=== PATIENT | female | born 1985 | race Caucasian/White ===

== ENCOUNTER 2023-05-24 17:06 | Emergency (ER) | payer OTHER, SELFPAY ==
[2023-05-24 17:12] VITALS: BP 150/100
[2023-05-24] MEDS: NSS 1000 IV ×2 (17:24)
[2023-05-24 17:25] LABS: % Basophils 0.3 % (0-2); % Eosinophils 1.1 % (0-6); % Immature Granulocytes 0.6 % (0-0.5); % Lymphocytes 3.6 % (20.5-51.1); % Monocytes 4.6 % (1.7-9.3); % Neutrophils 89.8 % (42.2-75.2); Absolute Eosinophils 0.1 10^3/uL (0-0.7); Absolute Immature Granulocytes 0.1 10^3/uL (0-0.05); Absolute Lymphocytes 0.4 10^3/uL (1.2-3.4); Absolute Monocytes 0.6 10^3/uL (0.1-0.6); Absolute Neutrophils 10.8 10^3/uL (1.4-6.5); Hematocrit 41.4 % (37.0-47.0); Hemoglobin 14.9 g/dL (12.0-16.0); Mean Corpuscular Hgb 31.4 pg (27.0-31.0); Mean Corpuscular Volume 87.3 fL (81.0-99.0); Mean Platelet Volume 10.7 fL (7.4-10.4); Nucleated Red Blood Cells % 0 %; Platelet Count 176 10^3/uL (130-400); Red Blood Cell Count 4.74 10^6/uL (4.20-5.40); Red Cell Dist. Width 12.1 % (11.5-14.5); White Blood Cell Count 12.1 10^3/uL (4.8-10.8)
[2023-05-24 17:51] LABS: ALT (SGPT) 50 U/L (0-35); AST (SGOT) 49 U/L (14-36); Albumin 4.8 g/dl (3.5-5.0); Alkaline Phosphatase 78 U/L (38-126); Blood Urea Nitrogen 26 mg/dl (7-17); Calcium 9.3 mg/dl (8.4-10.2); Carbon Dioxide 26 mmol/L (22-30); Chloride 104 mmol/L (98-107); Glucose 117 mg/dl (70-99); Lipase 79 U/L (23-300); Sodium 136 mmol/L (135-145); Total Protein 8.4 g/dl (6.3-8.2); eGFR > 60.00
[2023-05-24 18:22] VITALS: BP 126/70
[2023-05-24 19:00] VITALS: BP 136/89
[2023-05-24] MEDS: PEPCID 20 MG IV (19:16)
[2023-05-24] MEDS: BENADRYL 25 MG IV (19:17)
[2023-05-24] MEDS: BENTYL 20 MG IM (19:17)
[2023-05-24] MEDS: ZOFRAN 4 MG IV ×2 (19:17→21:03)
[2023-05-24] MEDS: TYLENOL 650 MG PO (19:37)
--- NOTE | 2023-05-24 19:46 | ED.GENMED ---
History of Present Illness
<Ino Glasgow Jr., PA-C - Last Filed: 05/25/23 07:04>
General
Chief Complaint: Abdominal Symptoms
Source: patient
Exam Limitations: none
Time Seen by Provider: 05/24/23 18:38
Nursing documentation reviewed up to this point in time: agreed with
Travel History
Have you had any contact with someone who has COVID-19?: No
Do you have any symptoms of coronavirus? Fever > 100 degrees, chills, cough, shortness of breath, sore throat, loss of taste or smell, muscle aches, or headache?: No
History of Present Illness
History of Present Illness:
38-year-old female with past medical history of anxiety PTSD previous substance abuse but currently in remission presenting to the emergency department today with concerns of nausea vomiting and diarrhea over the past 12 hours or so. Unable to keep
anything down. Denies any specific chest pain does have some diffuse abdominal cramping but denies any focal discomfort. Denies any marijuana use or any recent drug use or alcohol use.
Past History
<Ino Glasgow Jr., PA-C - Last Filed: 05/25/23 07:04>
Past History
ED Past Medical History: Psychiatric (anxiety, substance abuse-Meth, IVDA)
ED Past Surgical History: Appendectomy, Cholecystectomy, Tonsilectomy and Other
Social History
Tobacco: Former smoker
Alcohol: None
Drug: Narcotics and Other (Methamphetamine, IVDA)
Personal: Single
Living: with family
Employment: Not employed
Family History
Family History: Other (Noncontributory)
Review of Systems
<Ino Glasgow Jr., PA-C - Last Filed: 05/25/23 07:04>
Review of Systems
Allergies reviewed?: Yes
All Other Systems: ROS reviewed and negative except as documented in HPI and ROS
Phy Exam
<Ino Glasgow Jr., PA-C - Last Filed: 05/25/23 07:04>
Physical Exam
Physical Exam:
GENERAL: Alert , in no apparent distress
EYE: pupils equal and reactive
NECK: Supple, no significant adenopathy.
ENT: o/p clr, mmm.
CARDIAC: Regular rate and rhythm .
LUNGS: Clear breath sounds bilaterally, no acute respiratory distress, no wheezes/rales/rhonchi
ABDOMEN: Soft, without focal tenderness, no r/g, no cvat
NEUROLOGICAL: Alert and oriented, no focal neuro deficits
SKIN: Warm and dry, skin intact.
MUSCULOSKELETAL: No edema, well perfused.
PSYCH: Normal and appropriate interaction.
Course
<Ino Glasgow Jr., PA-C - Last Filed: 05/25/23 07:04>
Orders/Labs/Results
Orders:
Orders
05/24/23 17:13
EKG [Electrocardiogram (*1)] Urgent
Reason for Study: Abdominal Pain
EKG- Treatment ONCE
05/24/23 17:18
Complete Blood Count/With Diff Urgent
Comprehensive Metabolic Panel Urgent
HCG, Serum Qualitative Screen Urgent
Comment: ADD ON
Lipase Urgent
05/24/23 17:30
0.9% Sodium Chloride 1000 ml [Nss] 1,000 ml IV 2,000 mls/hr
05/24/23 19:01
Dicyclomine HCl [Bentyl] 20 mg IM NOW STA
Diphenhydramine [Benadryl] 25 mg IV NOW STA
Famotidine [Pepcid] 20 mg IV NOW STA
Ondansetron Injectable [Zofran] 4 mg IV NOW STA
05/24/23 19:35
Acetaminophen [Tylenol] 650 mg .ROUTE .STK-MED ONE
05/24/23 19:36
Acetaminophen [Tylenol] 650 mg PO NOW STA
05/24/23 20:07
CT Abd/Pel (IV only)-DH only Urgent
Comment:
Reason For Exam: diffuse abd pain, tahcy, white count, vomiting
Ketorolac [Toradol] 15 mg IV NOW STA
05/24/23 20:15
Add On- LAB Urgent
Tests Added?: qualitative beta hcg
05/24/23 20:49
Ondansetron Injectable [Zofran] 4 mg IV NOW STA
Abnormal Lab Results
05/24/23
17:18
WBC 12.1 H 10^3/uL
(4.8-10.8)
MCH 31.4 H pg
(27.0-31.0)
MPV 10.7 H fL
(7.4-10.4)
Abs Immat Gran (auto) 0.1 H 10^3/uL
(0-0.05)
Absolute Neuts (auto) 10.8 H 10^3/uL
(1.4-6.5)
Absolute Lymphs (auto) 0.4 L 10^3/uL
(1.2-3.4)
Immature Gran % 0.6 H %
(0-0.5)
Neutrophils % 89.8 H %
(42.2-75.2)
Lymphocytes % 3.6 L %
(20.5-51.1)
BUN 26 H mg/dl
(7-17)
Glucose 117 H mg/dl
(70-99)
AST 49 H U/L
(14-36)
ALT 50 H U/L
(0-35)
Total Protein 8.4 H g/dl
(6.3-8.2)
05/24/23 17:18
05/24/23 17:18
Vital Signs
Initial and Last Documented VS:
Initial Vital Signs
Temp Pulse Resp BP Pulse Ox
97.9 F 138 17 150/100 99
05/24/23 17:12 05/24/23 17:12 05/24/23 17:12 05/24/23 17:12 05/24/23 17:12
Last Documented Vital Signs
Temp Pulse Resp BP Pulse Ox
98.4 F 107 22 94/67 97
05/24/23 22:19 05/24/23 23:05 05/24/23 23:05 05/24/23 23:05 05/24/23 23:05
<Bree Estevez, [employer] - Last Filed: 05/25/23 02:24>
Orders/Labs/Results
Orders:
Orders
05/24/23 17:13
EKG [Electrocardiogram (*1)] Urgent
Reason for Study: Abdominal Pain
EKG- Treatment ONCE
05/24/23 17:18
Complete Blood Count/With Diff Urgent
Comprehensive Metabolic Panel Urgent
HCG, Serum Qualitative Screen Urgent
Comment: ADD ON
Lipase Urgent
05/24/23 17:30
0.9% Sodium Chloride 1000 ml [Nss] 1,000 ml IV 2,000 mls/hr
05/24/23 19:01
Dicyclomine HCl [Bentyl] 20 mg IM NOW STA
Diphenhydramine [Benadryl] 25 mg IV NOW STA
Famotidine [Pepcid] 20 mg IV NOW STA
Ondansetron Injectable [Zofran] 4 mg IV NOW STA
05/24/23 19:35
Acetaminophen [Tylenol] 650 mg .ROUTE .STK-MED ONE
05/24/23 19:36
Acetaminophen [Tylenol] 650 mg PO NOW STA
05/24/23 20:07
CT Abd/Pel (IV only)-DH only Urgent
Comment:
Reason For Exam: diffuse abd pain, tahcy, white count, vomiting
Ketorolac [Toradol] 15 mg IV NOW STA
05/24/23 20:15
Add On- LAB Urgent
Tests Added?: qualitative beta hcg
05/24/23 20:49
Ondansetron Injectable [Zofran] 4 mg IV NOW STA
Abnormal Lab Results
05/24/23
17:18
WBC 12.1 H 10^3/uL
(4.8-10.8)
MCH 31.4 H pg
(27.0-31.0)
MPV 10.7 H fL
(7.4-10.4)
Abs Immat Gran (auto) 0.1 H 10^3/uL
(0-0.05)
Absolute Neuts (auto) 10.8 H 10^3/uL
(1.4-6.5)
Absolute Lymphs (auto) 0.4 L 10^3/uL
(1.2-3.4)
Immature Gran % 0.6 H %
(0-0.5)
Neutrophils % 89.8 H %
(42.2-75.2)
Lymphocytes % 3.6 L %
(20.5-51.1)
BUN 26 H mg/dl
(7-17)
Glucose 117 H mg/dl
(70-99)
AST 49 H U/L
(14-36)
ALT 50 H U/L
(0-35)
Total Protein 8.4 H g/dl
(6.3-8.2)
05/24/23 17:18
05/24/23 17:18
Vital Signs
Initial and Last Documented VS:
Initial Vital Signs
Temp Pulse Resp BP Pulse Ox
97.9 F 138 17 150/100 99
05/24/23 17:12 05/24/23 17:12 05/24/23 17:12 05/24/23 17:12 05/24/23 17:12
Last Documented Vital Signs
Temp Pulse Resp BP Pulse Ox
98.4 F 107 22 94/67 97
05/24/23 22:19 05/24/23 23:05 05/24/23 23:05 05/24/23 23:05 05/24/23 23:05
<Ino Glasgow Jr., PA-C - Last Filed: 05/25/23 07:04>
MDM/Problems Addressed
MDM/Problems Addressed:
38-year-old female presenting to the emergency department today with concerns of ongoing vomiting diarrhea over the past 12 hours. Upon arrival here heart rate is elevated which could be secondary to dehydration and ongoing vomiting. Patient had a
slightly count 12.1 did have a BUN to creatinine ratio consistent with dehydration. Abdomen without specific focal tenderness. A liter of fluid with some improvement of heart rate but still with over 100. Was given additional medication including
Zofran and famotidine and a Tylenol due to a low-grade temperature. Patient reassessed after treatments heart rate still in the 110s and 120s concerning this plan for additional evaluation with CT scan considering she is having ongoing abdominal
discomfort. Abdominal examination does not have very specific focal tenderness but does have vague tenderness throughout.
<Bree Esteevz NP - Last Filed: 05/25/23 02:24>
MDM/Problems Addressed
MDM/Problems Addressed:
38-year-old female presenting to the emergency department today with concerns of ongoing vomiting diarrhea over the past 12 hours. Upon arrival here heart rate is elevated which could be secondary to dehydration and ongoing vomiting. Patient had a
slightly count 12.1 did have a BUN to creatinine ratio consistent with dehydration. Abdomen without specific focal tenderness. A liter of fluid with some improvement of heart rate but still with over 100. Was given additional medication including
Zofran and famotidine and a Tylenol due to a low-grade temperature. Patient reassessed after treatments heart rate still in the 110s and 120s concerning this plan for additional evaluation with CT scan considering she is having ongoing abdominal
discomfort. Abdominal examination does not have very specific focal tenderness but does have vague tenderness throughout.
05/24/2023 2250 PM
CAT scan abdomen pelvis radiology report read: IMPRESSION:
1. � Mild circumferential wall thickening and mucosal hyperenhancement in the descending colon, sigmoid colon, and rectum suspicious for a mild colitis.
2. � Mild hepatosplenomegaly.
3. � Mild diffuse hepatic steatosis.
4. � Small hiatal hernia.
5. � Previous cholecystectomy and appendectomy.
6. � IUD in the endometrial canal.
7. � 1.8 cm simple cyst in the left ovary.
05/24/2023 2333 PM
Heart rate down to 100 by this examiner.
Pt on Seroquel
Patient's EKG shows a normal QT interval.
Patient has been on Levaquin and Flagyl in the past, prescription for Levaquin and Flagyl and Zofran sent to her pharmacy
<Bree Estevez NP - Last Filed: 05/25/23 02:24>
*Critical Care Note
Total Time (30-74mins, 75-104mins- exclusive of procedures): Not Applicable
ED Attending Note
<Ino Glasgow Jr., PA-C - Last Filed: 05/25/23 07:04>
-
Portions of this chart may have been created with voice recognition software.� Occasional wrong word or��sound alike� substitutions may have occurred due to the inherent limitations of voice recognition software.
Discharge Plan
Departure
Patient Disposition: Home (Routine Discharge)
Date of Disposition: 05/24/23
Time of Disposition: 22:57
Patient with high blood pressure during this ER visit?: No
Condition: Fair
Discharge Problem:
Colitis
Instructions: Colitis, Clear Liquid Diet, Nausea and Vomiting, Adult (DC)
Prescriptions:
New
levofloxacin 500 mg tablet
500 mg PO DAILY 7 Days Qty: 7 0RF
metronidazole 500 mg tablet
500 mg PO TID Qty: 21 0RF
ondansetron 4 mg tablet,disintegrating
4 mg PO Q8H PRN (Reason: nausea and vomiting) 3 Days Qty: 9 0RF
No Action
Iud W/ Heather
1 insert SQ DAILY
Patient Comments:
inserted in 2011
quetiapine [Seroquel] 300 MG tablet
300 mg PO DAILY
metronidazole 500 MG tablet
500 mg PO TID
gabapentin 300 MG capsule
300 mg PO QID
quetiapine [Seroquel] 50 MG tablet
50 mg PO DAILY
ketoconazole 1 APPLIC cream
1 applic topical DAILY Qty: 30 0RF
levofloxacin 500 MG tablet
500 mg PO DAILY Qty: 7 0RF
prednisone 50 MG tablet
50 mg PO DAILY Qty: 4 0RF
hydroxyzine HCl 25 MG tablet
50 mg PO QIDPRN PRN (Reason: hives/allergic reaction) Qty: 12 0RF
epinephrine [EpiPen] 0.3 MG/0.3/SYRINGE auto-injector
0.3 mg IM NOW Qty: 1 2RF
Referrals:
Christine Dumont MD [Active] - Next open appointment
UNKNOWN - PT DOES,NOT KNOW [Family Provider] -
Activity Restrictions/Additional Instructions:
As we discussed, I sent a prescription to your pharmacy for the 2 antibiotics and also Zofran to use as needed for nausea
Return here immediately for worsening abdominal pain, bloody stools, fever or chills, vomiting or feeling sicker in any way.
Interventions
Interventions:
*Risk Screen - Suicide Last Done: 05/24/23 17:12
*General Assessment Last Done: 05/24/23 17:12
*Neglect/Abuse Screening Last Done: 05/24/23 17:12
ED- Fall Risk Assessment Last Done: 05/24/23 18:30
*ED COVID-19 Vaccine History Last Done: 05/24/23 17:12
*Nursing Disposition Last Done: 05/24/23 23:51
NS-Tpgyig-Vcjvuvaxcb Assessment Last Done: 05/24/23 18:25
Discharge Date and Time
Discharge Date/Time: 05/24/23 23:52
[2023-05-24 20:00] VITALS: BP 135/63
[2023-05-24 20:27] LABS: HCG, Serum Qualitative Screen Negative
[2023-05-24] MEDS: TORADOL 15 MG IV (20:45)
[2023-05-24 23:05] VITALS: BP 94/67
== END 2023-05-24 23:52 | disposition home or self-care (01) ==
LOC: EMR 17:06
PROVIDERS: Emergency Medicine; EMERGENCY PHYSICIAN Emergency Medicine
DX: K52.9 Noninfective gastroenteritis and colitis, unspecified (principal); F43.10 Post-traumatic stress disorder, unspecified; F19.10 Other psychoactive substance abuse, uncomplicated; F41.9 Anxiety disorder, unspecified; Z87.891 Personal history of nicotine dependence; Z90.49 Acquired absence of other specified parts of digestive tract
CPT/HCPCS: 99284; 96374; 96375; 96372; 96361; 74177; 80053; 83690; 84703; 85025; 93005; Q9967

== ENCOUNTER 2024-03-26 18:51 | Emergency (ER) | payer OTHER, SELFPAY ==
[2024-03-26 18:58] VITALS: BP 158/116
[2024-03-26 19:17] LABS: % Basophils 0.3 % (0-2); % Eosinophils 1.3 % (0-6); % Immature Granulocytes 0.3 % (0-0.5); % Lymphocytes 18.7 % (20.5-51.1); % Monocytes 7.5 % (1.7-9.3); % Neutrophils 71.9 % (42.2-75.2); Absolute Eosinophils 0.1 10^3/uL (0-0.7); Absolute Lymphocytes 1.6 10^3/uL (1.2-3.4); Absolute Monocytes 0.7 10^3/uL (0.1-0.6); Absolute Neutrophils 6.2 10^3/uL (1.4-6.5); Hematocrit 39.9 % (37.0-47.0); Hemoglobin 13.7 g/dL (12.0-16.0); Mean Corp Hgb Conc. 34.3 g/dL (33.0-37.0); Mean Corpuscular Hgb 31.7 pg (27.0-31.0); Mean Corpuscular Volume 92.4 fL (81.0-99.0); Mean Platelet Volume 11.3 fL (7.4-10.4); Nucleated Red Blood Cells % 0 %; Platelet Count 188 10^3/uL (130-400); Red Blood Cell Count 4.32 10^6/uL (4.20-5.40); Red Cell Dist. Width 12.5 % (11.5-14.5); White Blood Cell Count 8.6 10^3/uL (4.8-10.8)
[2024-03-26 19:28] LABS: HCG, Serum Qualitative Screen Negative
[2024-03-26 19:38] LABS: ALT (SGPT) 21 U/L (0-35); AST (SGOT) 25 U/L (14-36); Albumin 4.8 g/dl (3.5-5.0); Alkaline Phosphatase 68 U/L (38-126); Blood Urea Nitrogen 14 mg/dl (7-17); Calcium 9.4 mg/dl (8.4-10.2); Carbon Dioxide 25 mmol/L (22-30); Chloride 103 mmol/L (98-107); Glucose 107 mg/dl (70-99); Potassium 4.5 mmol/L (3.5-5.1); Sodium 140 mmol/L (135-145); Total Bilirubin 0.9 mg/dl (0.2-1.3); eGFR > 60.00
[2024-03-26 19:42] LABS: Troponin I < 0.012 ng/ml
[2024-03-26 20:05] VITALS: BMI 39.7
[2024-03-26 20:08] VITALS: BP 131/91
[2024-03-26 20:46] LABS: Monotest Negative (Negative)
[2024-03-26 21:01] LABS: Magnesium 2.1 mg/dl (1.6-2.3)
[2024-03-26 21:33] LABS: TSH Reflex To Free T4 1.91 uIU/ml (0.47-4.68)
[2024-03-26 21:52] VITALS: BP 136/88
--- NOTE | 2024-03-26 22:47 | ED.GENMED ---
History of Present Illness
General
Chief Complaint: Chest Pain
Source: patient
Exam Limitations: none
Time Seen by Provider: 03/26/24 19:30
Nursing documentation reviewed up to this point in time: agreed with
History of Present Illness
History of Present Illness:
Patient presents to ED secondary to sudden onset of right arm numbness sensation, along with right-sided neck pain and headache, starting the previous night while she was at home. Since then, symptoms have been intermittent. Denies blurred vision
or dizziness. Denies weakness. Denies difficulty ambulation. Denies chest pain or shortness of breath. Denies nausea or vomiting. Denies recent illness. Denies recent trauma. Denies previous history of similar symptoms. Patient states that
her symptoms started approximately 1 hour after taking her medication, is wondering whether or not some of her medications may be having an effect, along with increased stress level.
Past History
Past History
ED Past Medical History: Psychiatric (anxiety, substance abuse-Meth, IVDA)
ED Past Surgical History: Appendectomy, Cholecystectomy, Tonsilectomy and Other
Social History
Tobacco: Former smoker
Alcohol: None
Drug: Narcotics and Other (Methamphetamine, IVDA)
Personal: Single
Living: with family
Employment: Not employed
Family History
Family History: Other (Noncontributory)
Review of Systems
Review of Systems
Allergies reviewed?: Yes
All Other Systems: ROS reviewed and negative except as documented in HPI and ROS
Constitutional: Reports no symptoms
Respiratory: Reports no symptoms
Cardiac: Reports no symptoms
ABD/GI: Reports no symptoms
Musculoskeletal: Reports neck pain
Skin: Reports no symptoms
Neurological: Reports dizzy and headache
Phy Exam
Physical Exam
Physical Exam:
Physical Exam
General: no apparent distress, not acutely ill. afebrile
Head: nc/at. eomi
Neck: supple. no meningeal signs. normal posterior pharynx. normal range of motion
Heart: s1/s2 regular rate and rhythm, no murmur. equal radial pulses.
Lungs: no acute respiratory distress. clear bilaterally
Abdomen: normal bowel sounds. not tender.
Neuro: alert and oriented. no focal sensory/motor deficit. normal speech. normal gait.
Skin: no rash
Psychiatric: well kept. interactive and cooperative
Extremities: no edema. no calf tenderness.
Scores
Heart Score for Chest Pain Patients
STEMI patient?: Not applicable
Course
Orders/Labs/Results
Orders:
Orders
03/26/24 18:52
Electrocardiogram (*1) Urgent
Reason for Study: Chest Pain
EKG- Treatment ONCE
03/26/24 19:02
Test Result ONCE
03/26/24 19:09
Complete Blood Count/With Diff Urgent
Comprehensive Metabolic Panel Urgent
HCG, Serum Qualitative Screen Urgent
Magnesium Urgent
Comment: ADDON
Monotest Urgent
Comment: ADDON
TSH Reflex To Free T4 Urgent
Comment: ADDON
Troponin I Urgent
03/26/24 20:00
CT Head & Neck Angio W/wo IV Urgent
Comment:
Reason For Exam: right sided head/neck pain with right arm numbness
03/26/24 20:21
Add On- LAB Urgent
Tests Added?: monospot, TSH to reflex free T4, magnesium
Abnormal Lab Results
03/26/24
19:09
MCH 31.7 H pg
(27.0-31.0)
MPV 11.3 H fL
(7.4-10.4)
Absolute Monos (auto) 0.7 H 10^3/uL
(0.1-0.6)
Lymphocytes % 18.7 L %
(20.5-51.1)
Glucose 107 H mg/dl
(70-99)
03/26/24 19:09
03/26/24 19:09
Vital Signs
Initial and Last Documented VS:
Initial Vital Signs
Temp Pulse Resp BP Pulse Ox
98.6 F 107 19 158/116 100
03/26/24 18:58 03/26/24 18:58 03/26/24 18:58 03/26/24 18:58 03/26/24 18:58
Last Documented Vital Signs
Temp Pulse Resp BP Pulse Ox
98.6 F 84 16 136/88 99
03/26/24 18:58 03/26/24 21:52 03/26/24 21:52 03/26/24 21:52 03/26/24 21:52
MDM/Problems Addressed
MDM/Problems Addressed:
Patient with an overall workup in ED, including blood work and CT angiogram head and neck. Otherwise, patient remains afebrile, hemodynamically stable, and neurologically intact. Patient's presenting symptoms, nonspecific, likely multifactorial,
including recent stress versus medication effect. Patient feels comfortable home at this time, with recommendation to follow-up with her PCP as an outpatient. Advised to return to ED with any worsening symptoms.
*Critical Care Note
Total Time (30-74mins, 75-104mins- exclusive of procedures): Not Applicable
ED Attending Note
-
Portions of this chart may have been created with voice recognition software.� Occasional wrong word or��sound alike� substitutions may have occurred due to the inherent limitations of voice recognition software.
Discharge Plan
Departure
Patient Disposition: Home (Routine Discharge)
Date of Disposition: 03/26/24
Time of Disposition: 22:47
Patient with high blood pressure during this ER visit?: Yes
Condition: Good
Discharge Problem:
Paresthesia
Instructions: Paresthesia (DC)
Prescriptions:
No Action
quetiapine [Seroquel] 300 MG tablet
300 mg PO DAILY
epinephrine [EpiPen] 0.3 MG/0.3/SYRINGE auto-injector
0.3 mg IM NOW Qty: 1 2RF
ropinirole [Requip] 1 mg Tablet
1 mg PO HS
prazosin 1 mg Capsule
1 mg PO HS
clonidine HCl 0.3 mg Tablet
0.3 mg PO BID
Referrals:
Karri Hayward MD [Family Provider] -
Activity Restrictions/Additional Instructions:
As discussed, please follow-up with your primary care physician for reevaluation.
Interventions
Interventions:
*Risk Screen - Suicide Last Done: 03/26/24 18:58
*General Assessment Last Done: 03/26/24 18:58
*Neglect/Abuse Screening Last Done: 03/26/24 18:58
ED- Fall Risk Assessment Last Done: 03/26/24 20:12
*ED COVID-19 Vaccine History Last Done: 03/26/24 20:05
*Nursing Disposition Last Done: 03/26/24 23:00
ED- Cardiac Assessment Last Done: 03/26/24 20:12
Discharge Date and Time
Discharge Date/Time: 03/26/24 23:01
Print Language: UGANDAN
== END 2024-03-26 23:01 | disposition home or self-care (01) ==
LOC: EMR 18:51
PROVIDERS: EMERGENCY PHYSICIAN Emergency Medicine; FAMILY PHYSICIAN Family Medicine
DX: R20.2 Paresthesia of skin (principal); F41.9 Anxiety disorder, unspecified; F19.10 Other psychoactive substance abuse, uncomplicated; Z87.891 Personal history of nicotine dependence; Z90.49 Acquired absence of other specified parts of digestive tract
CPT/HCPCS: 99284; 70496; 70498; 80053; 83735; 84443; 84484; 84703; 85025; 86308; 93005; Q9967

== ENCOUNTER 2024-08-11 15:16 | Emergency (ER) | payer OTHER, SELFPAY ==
[2024-08-11 15:25] VITALS: BP 143/102
--- NOTE | 2024-08-11 15:44 | ED.GENMED ---
History of Present Illness
General
Chief Complaint: Self Inflicted Injury
Source: patient
Exam Limitations: none
Time Seen by Provider: 08/11/24 15:18
Nursing documentation reviewed up to this point in time: agreed with
History of Present Illness
History of Present Illness:
39-year-old female presents to the ER for evaluation after cutting herself on her left forearm. Patient says that she has been very depressed due to family issues. She says that today she used some scissors to cut her left forearm to relieve some
of her stress. She says that this was not an attempt at suicide and that she does not have suicidal or homicidal ideation. She acknowledges that this was a poor decision but says that it was meant as a stress relief. She has done this in the
past. She denies any drug or alcohol use. She denies any other complaints. She is not sure when her last tetanus shot was.
Past History
Past History
ED Past Medical History: Psychiatric (anxiety, substance abuse-Meth, IVDA)
ED Past Surgical History: Appendectomy, Cholecystectomy, Tonsilectomy and Other
Social History
Tobacco: Former smoker
Alcohol: None
Drug: Narcotics and Other (Methamphetamine, IVDA)
Personal: Single
Living: with family
Employment: Not employed
Family History
Family History: Other (Noncontributory)
Review of Systems
Review of Systems
All Other Systems: ROS reviewed and negative except as documented in HPI and ROS
Skin: Reports other (Laceration)
Psychiatric: Reports depression; Denies suicidal
Phy Exam
Physical Exam
Physical Exam:
General: Well appearing and non-toxic
HEENT: protecting airway
Neck: appears supple
CV: No evidence of cyanosis
Resp: No accessory muscle use
Abd: Non-distended
Extremities: No deformities
Neuro: Alert
Psych: Depressed mood, normal affect; goal directed and future oriented
Skin: Patient has some superficial horizontal abrasions on the ventral aspect of the left forearm and there is a small 2.5 cm linear sharp laceration as well; explored to base no foreign body, extends to adipose tissue but no exposed tendon or
vasculature noted; hemostatic; strong distal pulse left upper extremity
Scores
Heart Failure Risk
Heart Failure Risk Score: Not Applicable
Heart Score for Chest Pain Patients
STEMI patient?: Not applicable
Withdrawal Assessment of Alcohol
Withdrawal Assessment Completed?: Not applicable
Course
Orders/Labs/Results
Orders:
Orders
08/11/24 15:36
Crisis Consult Routine
Reason for Consult: self harm
Tetanus/Diphth/Acelpertussis [Adacel] 0.5 ml IM .ONCE ONE
Vital Signs
Initial and Last Documented VS:
Initial Vital Signs
Temp Pulse Resp BP Pulse Ox
36.7 C 105 18 143/102 98
08/11/24 15:25 08/11/24 15:25 08/11/24 15:25 08/11/24 15:25 08/11/24 15:25
Last Documented Vital Signs
Temp Pulse Resp BP Pulse Ox
36.7 C 105 18 143/102 98
08/11/24 15:25 08/11/24 15:25 08/11/24 15:25 08/11/24 15:25 08/11/24 15:25
Procedures
Laceration Closure
Left Arm:
Status of Wound: clean
Size of Wound in cm: 2.5
Description of Wound Edges: sharp
Preparation: cleaned with saline
Anesthesia: 1% Lidocaine with epi
Revision/Debridement: routine- no revision
Type of Closure: single layer closure
Skin Closure Material: 4-0 vicryl
Number of sutures: 3
MDM/Problems Addressed
Differential Diagnosis Includes:
Forearm laceration
MDM/Problems Addressed:
39-year-old female presents to the ER for evaluation after cutting left forearm with scissors. Denies being actively suicidal says that she did this to make her self feel better because she was depressed. Denies homicidality. Denies drug or
alcohol use. Unsure of her last tetanus. Laceration was cleaned and repaired as documented in procedure note using absorbable sutures. Tetanus updated. Case discussed with crisis for assessment. At this point patient does not appear acutely
suicidal it sounds like this was more of a mechanism to relieve anxiety/depression rather than true attempt at taking her own life. In my judgment no indication for inpatient psychiatric treatment at this point.
Chronic conditions affecting care:
Depression
*Pulse Oximetry
Patient hypoxic: no
*Critical Care Note
Total Time (30-74mins, 75-104mins- exclusive of procedures): Not Applicable
Data Reviewed
Source: patient and records
Patient Management
Discussion with other providers: Other (Discussed with crisis staff)
ED Attending Note
-
Portions of this chart may have been created with voice recognition software.� Occasional wrong word or��sound alike� substitutions may have occurred due to the inherent limitations of voice recognition software.
Discharge Plan
Departure
Patient Disposition: Home (Routine Discharge)
Date of Disposition: 08/11/24
Time of Disposition: 15:50
Patient with high blood pressure during this ER visit?: Yes
Discharge Problem:
Intentional self-harm, Forearm laceration
Instructions: Depression, Adult (DC), Laceration Repair With Stitches (DC)
Prescriptions:
No Action
quetiapine [Seroquel] 300 MG tablet
300 mg PO DAILY
epinephrine [EpiPen] 0.3 MG/0.3/SYRINGE auto-injector
0.3 mg IM NOW Qty: 1 2RF
ropinirole [Requip] 1 mg Tablet
1 mg PO HS
prazosin 1 mg Capsule
1 mg PO HS
clonidine HCl 0.3 mg Tablet
0.3 mg PO BID
Activity Restrictions/Additional Instructions:
Your laceration was repaired with stitches here in the ER. The stitches are absorbable and do not need to be removed. If you notice any signs of infection you should return to the emergency room immediately�the signs include redness, increased
pain, swelling, drainage, fever. You should follow-up with your therapist/psychiatric team as discussed.
Thank you for visiting the Emergency Department at [facility].
1. Please schedule a follow up appointment as directed. Call first thing tomorrow morning to make an appointment.
2. If indicated, please take your medications as instructed and indicated on discharge paperwork.
3. If any of your symptoms do not improve, or persist, or become more severe within 6-12 hours, please return to the emergency department for further care.
4. Please return to the emergency department if you develop a headache, neck pain/stiffness, fever greater than 100.4F, chest pain, shortness of breath, persistent nausea, vomiting, slurred speech, difficulty walking, numbness/tingling, weakness,
signs of infection or any other symptoms that are worrisome to you.
Please call [phone] if you have any questions.
Interventions
Interventions:
*Risk Screen - Suicide Last Done: 08/11/24 15:25
*General Assessment Last Done: 08/11/24 15:25
*Neglect/Abuse Screening Last Done: 08/11/24 15:25
*ED- Fall Risk Assessment Last Done: 08/11/24 15:25
*ED COVID-19 Vaccine History Last Done: 08/11/24 15:25
ED-Suicide Risk Assessment Last Done: 08/11/24 15:28
ED-Skin Assessment Last Done: 08/11/24 15:28
Discharge Date and Time
Print Language: DANISH
[2024-08-11] MEDS: ADACEL 0.5 ML IM (16:05)
== END 2024-08-11 16:18 | disposition home or self-care (01) ==
LOC: EMR 15:16
PROVIDERS: EMERGENCY PHYSICIAN Emergency Medicine
DX: S51.812A Laceration without foreign body of left forearm, initial encounter (principal); X78.8XXA Intentional self-harm by other sharp object, initial encounter; F32.A Depression, unspecified; Z87.891 Personal history of nicotine dependence; Z63.9 Problem related to primary support group, unspecified
CPT/HCPCS: 12001; 90471; 99283; 90715